=== PATIENT | male | born 1965 | race Hispanic/Latino ===

== ENCOUNTER 2018-03-05 10:32 | Inpatient (IN) | payer BC ==
--- NOTE | 2018-03-05 10:51 | ED PDOC ---
Arrival/HPI - General Chief Complaint: Chest Pain Time Seen by Provider: 03/05/18 10:43 Historian: Patient - History of Present Illness Narrative History of Present Illness (Text): 03/05/18 10:50 52 year old male with past medical history of a cardiac stent placement (11 years ago) presents to the emergency department complaining of centralized chest pressure for the past week, which developed into left-sided chest pain radiating to his left arm 1.5 hours prior to arrival. Patient informs feeling a "clammy" sensation but denies any other medical complaints. Patient states symptoms lasted for 5 minutes and states he is currently asymptomatic. Patient denies any fevers, chills, headache, dizziness, shortness of breath, dyspnea on exertion, cough, abdominal pain, nausea, vomiting, diarrhea, back pain, neck pain, or any other complaints. PMD: None Rejogger: Dr. Wyman 6 baby aspirins taken prior to arrival. Time/Duration: Other (1.5 hours prior to arrival) Symptom Onset: Gradual Symptom Course: Unchanged Activities at Onset: Light Context: Home Past Medical History - Provider Review Nursing Documentation Reviewed: Yes - Infectious Disease Hx of Infectious Diseases: None - Cardiac Hx SD: Yes Other/Comment: cardiac stent - Pulmonary Hx Respiratory Disorders: No - Neurological Hx Neurological Disorder: No - HEENT Hx HEENT Disorder: No - Renal Hx Renal Disorder: No - Endocrine/Metabolic Hx Endocrine Disorders: No - Hematological/Oncological Hx Blood Disorders: No - Integumentary Hx Dermatological Disorder: No - Psychiatric Hx Substance Use: No - Anesthesia Hx Anesthesia: No Family/Social History - Physician Review Nursing Documentation Reviewed: Yes Family/Social History: No Known Family HX Smoking Status: Current Some Days Smoker Hx Alcohol Use: No Hx Substance Use: No Allergies/Home Meds Allergies/Adverse Reactions: Allergies No Known Allergies Allergy (Verified 05/20/12 12:57) Review of Systems - Physician Review All systems were reviewed & negative as marked: Yes - Review of Systems Respiratory: absent: SOB Cardiovascular: Chest Pain (left sided with radiation to left arm) Gastrointestinal: absent: Diarrhea, Nausea, Vomiting Physical Exam - Physical Exam Narrative Physical Exam (Text): 03/05/18 10:58 Constitutional: No acute distress. Head: Normocephalic. Atraumatic. Eyes: PERRL. ENT: Moist mucous membranes. Neck: Supple. Cardiovascular: Regular rate. Chest: No tenderness. Respiratory: Clear to auscultation bilaterally. GI: Soft. Nontender. Nondistended. Back: No CVA tenderness. Musculoskeletal: No tenderness or swelling of extremities. Skin: No rash. Neurologic: Alert, no focal deficit. Vital Signs Reviewed: Yes Vital Signs Temp Pulse Resp BP Pulse Ox 03/05/18 10:32 98.3 F 81 18 117/71 98 Temperature: Afebrile Blood Pressure: Normal Pulse: Regular Respiratory Rate: Normal Appearance: Positive for: Well-Appearing, Non-Toxic, Comfortable Pain Distress: None Mental Status: Positive for: Alert and Oriented X 3 Medical Decision Making ED Course and Treatment: 03/05/18 10:59 Impression: 52 year old presents to the emergency department complaining of transient episode of chest pain radiating to left arm 1.5 hours prior to arrival. Plan: -- Labs -- EKG -- Chest X-ray -- Reassess and disposition Prior Visits: Notes and results from previous visits were reviewed. Progress Notes: EKG: Ordered, reviewed, and independently interpreted the EKG. Rate : 82 bpm Rhythm : NSR Interpretation : No ST-segment elevations or depressions, T-wave inversions V1- V6, 1AVL 03/05/18 12:34 Chest x-ray, reviewed by radiologist, shows: IMPRESSION: No active pulmonary disease. 4 mm nodular density in the right upper lobe is nonspecific and could represent an end on vessel or parenchymal nodule. Dedicated CT scan of the thorax without intravenous contrast on a nonemergent basis is recommended for further evaluation. Troponin positive. Patient states he saw Dr. Mcintosh in office years ago. Dr. Mcintosh accepts patient to his service. Dr. Wyman will take patient to tailings dam laborer now. - RAD Interpretation Corn Detasseler Machine Operator: Radiologist - EKG Interpretation Interpreted by ED Physician: Yes Type: 12 lead EKG - Scribe Statement The provider has reviewed the documentation as recorded by the Scribe Jeaneth brown with Christal All medical record entries made by the Scribe were at my direction and personally dictated by me. I have reviewed the chart and agree that the record accurately reflects my personal performance of the history, physical exam, medical decision making, and the department course for this patient. I have also personally directed, reviewed, and agree with the discharge instructions and disposition. Disposition/Present on Arrival - Present on Arrival Any Indicators Present on Arrival: No History of DVT/PE: No History of Uncontrolled Diabetes: No Urinary Catheter: No History of Decub. Ulcer: No History Surgical Site Infection Following: None - Disposition Have Diagnosis and Disposition been Completed?: Yes Diagnosis: NSTEMI (non-ST elevated myocardial infarction) Disposition: HOSPITALIZED Disposition Time: 13:00 Patient Plan: Admission, Telemetry Patient Problems: Current Active Problems Problem Status Onset NSTEMI (non-ST elevated myocardial infarction) Acute Condition: GUARDED Forms: [facility] (Nepali)
[2018-03-05 11:24] LABS: BASO # 0.02 K/mm3 (0.0-2.0); BASO % 0.3 % (0.0-3.0); EOS # 0.2 (0.0-0.7); GRAN # 5.18 (1.4-6.5); GRAN % 68.6 % (50.0-68.0); HEMOGLOBIN 12.6 g/dL (14.0-18.0); LYMPH # 1.9 (1.2-3.4); LYMPH % 24.9 % (22.0-35.0); MEAN CELL VOLUME 88.2 fl (80.0-105.0); MEAN CORPUSCULAR HEMOGLOBIN 29.2 pg (25.0-35.0); MEAN CORPUSCULAR HGB CONC 33.1 g/dl (31.0-37.0); MEAN PLATELET VOLUME 9.3 fl (7.0-11.0); MONO # 0.3 (0.1-0.6); MONO % 4.2 % (1.0-6.0); RBC 4.32 10^6/uL (3.5-6.1); RED CELL DISTRIBUTION WIDTH 13.6 % (11.5-14.5); WHITE BLOOD COUNT 7.6 10^3/uL (4.5-11.0)
[2018-03-05 11:31] LABS: ALB/GLOB RATIO 1.3 (1.1-1.8); ALBUMIN 4.1 g/dL (3.0-4.8); ALT/SGPT 29 U/L (7-56); AST/SGOT 22 U/L (17-59); BLOOD UREA NITROGEN 17 mg/dL (7-21); CALCIUM 8.8 mg/dL (8.4-10.5); GFR NON-AFRICAN AMERICAN > 60
--- NOTE | 2018-03-05 12:31 | RAD ---
Date of service: 03/05/2018 HISTORY: Chest pain COMPARISON: No prior. FINDINGS: LUNGS: The lungs are well inflated and clear. There is subsegmental atelectasis in the right lower lobe. There is a 4 mm nodular density in the right upper lobe. PLEURA: No pleural effusions or pneumothorax. CARDIOVASCULAR: The heart is normal in size. No aortic atherosclerotic calcification present. OSSEOUS STRUCTURES: Within normal limits for the patient's age. VISUALIZED UPPER ABDOMEN: Normal. OTHER FINDINGS: None. IMPRESSION: No active pulmonary disease. 4 mm nodular density in the right upper lobe is nonspecific and could represent an end on vessel or parenchymal nodule. Dedicated CT scan of the thorax without intravenous contrast on a nonemergent basis is recommended for further evaluation.
[2018-03-05 12:32] LABS: TROPONIN I 0.15 ng/mL
[2018-03-05] MEDS ORDERED: Potassium Chloride 20 mEq ER Tab PO STA (13:35)
[2018-03-05] MEDS ORDERED: Aspirin 325 mg EC Tablets PO STA (13:35)
[2018-03-05] MEDS ORDERED: Lidocaine 2% Inj (20ml) ONE (13:59)
[2018-03-05] MEDS ORDERED: Phenylephrine 10 mg/ml Inj ONE (14:00)
[2018-03-05] MEDS ORDERED: Iodixanol 320 MG/ML 200 ML BOTTLE IV ONE (14:00)
[2018-03-05] MEDS ORDERED: Iodixanol 320 MG/ML 100 ML BOTTLE IV ONE (14:00)
[2018-03-05] MEDS ORDERED: Iohexol 350mgl/ml 50 ML ONE (14:00)
[2018-03-05] MEDS ORDERED: Nitroglycerin 50mg in D5W 50 MG/250 ML BOTTLE IV ONE (14:01)
[2018-03-05] MEDS ORDERED: Verapamil 2 ML ONE (14:01)
[2018-03-05 14:03] LABS: INR 1.05; PARTIAL THROMBOPLASTIN TIME 30.1 Seconds (25.1-36.5); PROTHROMBIN TIME 12.1 SECONDS (9.4-12.5)
[2018-03-05] MEDS ORDERED: Midazolam 2 MG/2 ML VIAL ONE (14:56)
--- NOTE | 2018-03-05 15:00 | CON ---
DATE: 03/05/2018 SEX OF THE PATIENT: Male. AGE OF THE PATIENT: 52. TYPE OF DICTATION: Consult. REASON FOR CONSULTATION AND FOLLOWUP: Acute coronary artery disease, unstable angina, chest pain. BRIEF CLINICAL HISTORY: This 52-year-old active tobacco abuse male with past medical history significant for coronary artery disease status post DC 11 years ago, status post PTCA 11 years ago at [facility], who came in with complain of chest pain for 24 hours duration. Yesterday, patient with central retrosternal chest pain that got better so the patient did not pay attention. This morning, again the patient has a chest pain heavy, sitting something on the chest. He came to the emergency room. He denies any further episode of the chest pain. Admitting EKG showed normal sinus, symmetrical T inversion in lead V2 to V6 and one in AVL as well. Denies any chest pain now. PAST MEDICAL HISTORY: Significant for coronary artery disease, status post DC and PTCA 11 years ago at [facility]. CURRENT MEDICATIONS: None. FAMILY HISTORY: Significant for coronary artery disease. SOCIAL HISTORY: He smokes half a pack a day, before used to more but cut down. History of alcohol abuse cut down. ALLERGIES: NO KNOWN DRUG ALLERGIES. REVIEW OF SYSTEMS: As per HPI. PHYSICAL EXAMINATION VITAL SIGNS: Height of the patient 5 feet 9 inches, weight of patient 190 pounds, body mass index 28.1 kg/m2. Temperature afebrile, heart rate 81, blood pressure 120/75. HEENT: PERRLA intact. NECK: Supple. No carotid bruit or thyromegaly. CHEST: Clear to auscultation. HEART: S1. S2 regular. ABDOMEN: Soft. EXTREMITIES: No clubbing. No cyanosis. LABORATORY DATA: WBC 7.6, hemoglobin 12.6, hematocrit 38.1, platelet count 241. Chemistry shows sodium 141, potassium 3.7, chloride 108, carbon-dioxide 26, anion gap 11, creatinine 1.0, troponin 0.17. EKG shows normal sinus, rate of 82, symmetrical T wave inversion V2 to V6. IMPRESSION: Acute coronary artery disease, unstable angina, possible non-ST segment myocardial infarction. Given the risk factor multiple history of coronary artery status post percutaneous transluminal coronary angioplasty 11 years ago, noncompliance with the medication, admitted with unstable angina, symmetrical T wave inversion. RECOMMENDATIONS: Load with aspirin, Plavix and consider early catheterization. Risks, benefits, and alternatives discussed with the patient, the patient agreed to proceed for cardiac catheterization further recommendation after cardiac catheter, we will follow with you. Thank you Dr. Mcintosh for providing us the opportunity in taking care of the patient, Shawn Simms, we will follow with you. Ben Wyman MD MTDD
[2018-03-05] MEDS ORDERED: Eptifibatide 20 mg/10mL Inj IVP ONE (15:15)
[2018-03-05] MEDS ORDERED: Sodium Chloride 0.9% 1,000 ML IV SCH (16:00)
--- NOTE | 2018-03-05 16:48 | CARD ---
APPROVED REPORT Date of service: 03/05/2018 Procedure(s) performed: Left Heart Catheterization PTCA with Stenting of Proximal LAD with JAM HISTORY The patient is a 52 year-old male with a history of : previous ND (> 7 days), previous diagnostic cath, tobacco history() : The patient is a current smoker , previous PCI (The PCI date was 03/03/2007), Non compliant with meds, admitted with ACS/ NSTEMI. INDICATION The indication(s) include : unstable angina , non-STEMI . CASE TECHNIQUE The patient was brought urgently to the Cardiac Catheterization Laboratory in a fasting state and was prepped and draped in a sterile manner. The left wrist was infiltrated with 2% Lidocaine subcutaneous anesthesia. A 6FR GLIDESHEATH ACCESS KIT sheath was inserted into the left radial artery without difficulty. Coronary angiography was performed using coronary diagnostic catheters. The left coronary system was accessed and visualized with a Diagnostic ,5F JL 4 CATH DXT 100 CM catheter. The right coronary system was accessed and visualized with a Diagnostic ,5F JR 4 CATH DXT 100 CM catheter. The left ventricle was accessed and visualized with a 5F PIGTAIL 145 CATH DXT 110 CM catheter. Left ventricular/Aortic Valve gradient assessed on pullback. Left ventriculogram was performed in JAY projection. Closure device was deployed with a Fr TR Band (Regular) without any complications. The patient tolerated the procedure well and there were no complications associated with the procedure. Vessel Analysis The patient's coronary anatomy is right dominant. The left main coronary artery is a medium size vessel with diffuse calcification noted throughout this vessel and without significant stenosis. The left main bifurcates to the left anterior descending and circumflex. The left anterior descending artery is a medium size vessel with diffuse calcification noted throughout this vessel and with significant stenosis. Stent Noted In Proximal LAD, But stenosis is Proximal to stent involving proxinal end of stent. There is a 95% stenosis in the proximal segment. Proximal to previously placed stent The first diagonal branch is a small size vessel with diffuse calcification noted throughout this vessel and without significant stenosis. The second diagonal branch is a small size vessel with diffuse calcification noted throughout this vessel and without significant stenosis. The circumflex artery is a medium size vessel with diffuse calcification noted throughout this vessel and without significant stenosis. There is a 40-50% stenosis in the mid segment. The first obtuse marginal branch is a medium size vessel with diffuse calcification noted throughout this vessel and without significant stenosis. There is a 40-50% stenosis in the proximal segment. The second obtuse marginal branch is a medium size vessel with diffuse calcification noted throughout this vessel and without significant stenosis. The third obtuse marginal branch is a small size vessel with diffuse calcification noted throughout this vessel and without significant stenosis. The right coronary artery is a medium size vessel with diffuse calcification noted throughout this vessel and without significant stenosis. There is a 40-50% stenosis in the mid and Distalsegment. multiple sausagge shape stenoses The right posterior descending artery is a medium size vessel with diffuse calcification noted throughout this vessel and without significant stenosis. The right posterolateral branch is a medium size vessel with diffuse calcification noted throughout this vessel and without significant stenosis. Left Ventricle The left ventricle is Normal in size with Normal contractility. There was no cardiomyopathy. The left ventricular ejection fraction is estimated to be 55%. The left ventricular end diastolic pressure is 15-16 mmHg. There was no gradient across the aortic valve upon pullback. Possibly 1-2 + MR,( Hand injection). PCI Technique Lesion Anticoagulation was achieved with Heparin and integrellin Bolluses only. Percutaneous coronary intervention was performed on the proximal left anterior descending artery segment. The lesion stenosis prior to intervention was 95% with LISA 2 flow. A 6 Fr XB 3.0 Guide Catheter was used to engage the ostium. A Luge 182 Interventional Guidewire was used to cross the lesion. BALLOON DILATION A Balloon catheter 2.5 x 12 mm Trek RX was inserted and inflated up to 10.00atm for 14seconds. STENT DEPLOYMENT A drug-eluting stent STENT RESOLUTE TOÑITO 3.0 X 15 was inserted and inflated up to 14.00atm for 30seconds. Final angiography reveals 0 % stenosis with LISA 3 flow. Conclusion Critical one Vessel disease ,Proximal LAD 95% stenosis. Moderate RCA and cx diz. Preserved LV FX, EF-55%, EDP-15-16 mmof hg. Successful PTCA with JAM of Proximal LAD Recommendations Daily ASA with Plavix for at least one year Aggressive Medical TherapyCardiac Risk Reduction Program Add statin, CIARAN, and coreg. Emphasis on compliance of meds. F/u Echo to asssess MR and Lv Fx, F/u CT Scan chest for pulmonary Nodule mentioned on CxR. CC; Dr. Chasity Mcintosh DO.
--- NOTE | 2018-03-05 17:25 | CARD ---
APPROVED REPORT Date of service: 03/05/2018 EKG Measurement Heart [id number] <Conclusion> Normal sinus rhythm Possible Inferior infarct, age undetermined SymmetricalT wave inversion,, consider anterolateral ischemia Abnormal ECG
--- NOTE | 2018-03-05 18:59 | HP ---
DATE OF EXAM: 03/05/2018 HISTORY OF PRESENT ILLNESS: I was called to see Shawn in the hospital. He is a 52-year-old white man, I have not seen in a long time who presents with a centralized chest pressure for the past week and development of left-sided chest pain to the left arm for about 1.5 hours before he got to the hospital, also clammy, he felt he was having a heart attack, and he is little bit short of breath. His doctor is Dr. Wyman, his auxiliary equipment operator. PAST MEDICAL HISTORY: CAD with stent placement 11 years ago. I have not seen him in many, many years in the office. FAMILY HISTORY: Unknown family history. SOCIAL HISTORY: Still smokes cigarettes. No alcohol. No drugs. ALLERGIES: NO KNOWN DRUG ALLERGIES. REVIEW OF SYSTEMS: No acute vision or hearing changes. No sore throat. There is chest pain left-sided radiating to the left arm. Little shortness of breath, but he is talking too much. No nausea, vomiting, constipation, or diarrhea. No headache. Not anxious. PHYSICAL EXAMINATION: VITAL SIGNS: He has 98.3 temperature, 81 pulse, 18 respiratory rate, 117/71 blood pressure, and 98% O2 sat on room air. GENERAL: He is in mild distress. HEENT: His head is atraumatic and normocephalic. His extraocular muscles are intact. Pupils are equal and react to light and accommodation. Throat is moist. NECK: Supple. HEART: Regular rate. LUNGS: Decreased breath sounds. Poor inspiration, but clear to auscultation bilaterally. No wheezes, rhonchi or rales. ABDOMEN: Soft and nontender. Positive bowel sounds. No guarding. No rebound. No CVA tenderness. EXTREMITIES: Have no edema bilaterally. No apparent rash ulcers. NEUROLOGIC: He is alert and oriented x3. Little anxious. LABORATORY DATA: He had a chest x-ray, which showed a 4-mm nodule density in the right upper lobe. Please get a CAT scan, we ordered CAT scan for tomorrow morning and EKG that showed possible ST-segment elevations or depressions T-waves anteriorly. He had multiple tests done. He has 141 sodium, potassium 3.7, BUN 70, creatinine 1, GFR greater than 60, sugar is 116, calcium 8.8, total bili is 0.5, AST is 22, ALT is 29, alk phos 61, and total creatinine kinase is 97. Troponin I is elevated 0.15. Total protein 7.2, albumin is 4.1, and globulin is 3.2. INR is 1.05. White count 7.6, hemoglobin 12.6, hematocrit 30.1, and platelets are 241. ASSESSMENT AND PLAN: He is currently on Altace, Coreg, Lipitor, and IV fluids. He is status post cardiac catheterization with Dr. Wyman with stent placement. He is here for an acute myocardial infarction, coronary artery disease with stent placement. He will have a CAT scan of the chest tomorrow lung, echocardiogram, and blood test. Hopefully, he will do well. He is more comfortable now after the stent placement. Hasmukh Mcintosh DO MTDVal
[2018-03-05 19:02] VITALS: BMI 28.0
[2018-03-05] MEDS ORDERED: Influenza Vaccine 60 mcg/0.5 mL SYR (4YR UP) IM ONE (19:02)
[2018-03-05] MEDS ORDERED: Pneumococcal 23-Valent Vaccine IM ONE (19:02)
[2018-03-05 20:17] LABS: BASO # 0.02 K/mm3 (0.0-2.0); BASO % 0.3 % (0.0-3.0); EOS # 0.3 (0.0-0.7); EOS % 4.2 % (1.5-5.0); GRAN # 2.79 (1.4-6.5); GRAN % 44.9 % (50.0-68.0); HEMOGLOBIN 12.1 g/dL (14.0-18.0); LYMPH # 2.8 (1.2-3.4); LYMPH % 45.1 % (22.0-35.0); MEAN CELL VOLUME 88.5 fl (80.0-105.0); MEAN CORPUSCULAR HEMOGLOBIN 29.1 pg (25.0-35.0); MEAN CORPUSCULAR HGB CONC 32.9 g/dl (31.0-37.0); MEAN PLATELET VOLUME 9.5 fl (7.0-11.0); MONO # 0.3 (0.1-0.6); MONO % 5.5 % (1.0-6.0); RBC 4.16 10^6/uL (3.5-6.1); RED CELL DISTRIBUTION WIDTH 13.7 % (11.5-14.5); WHITE BLOOD COUNT 6.2 10^3/uL (4.5-11.0)
[2018-03-05 20:20] LABS: BLOOD UREA NITROGEN 16 mg/dL (7-21); CALCIUM 8.7 mg/dL (8.4-10.5); GFR NON-AFRICAN AMERICAN > 60
[2018-03-05] MEDS ORDERED: Bacitracin 500 Units/gm Oint Foilpak UD ONE (20:46)
[2018-03-05 22:33] VITALS: RESP 20
[2018-03-06 05:57] VITALS: TEMP 98.7; O2SAT 97
[2018-03-06 07:32] LABS: BASO # 0.02 K/mm3 (0.0-2.0); BASO % 0.3 % (0.0-3.0); EOS # 0.3 (0.0-0.7); EOS % 3.9 % (1.5-5.0); GRAN # 4.29 (1.4-6.5); GRAN % 62.4 % (50.0-68.0); HEMOGLOBIN 13.9 g/dL (14.0-18.0); LYMPH % 28.6 % (22.0-35.0); MEAN CELL VOLUME 89.7 fl (80.0-105.0); MEAN CORPUSCULAR HEMOGLOBIN 29.1 pg (25.0-35.0); MEAN CORPUSCULAR HGB CONC 32.5 g/dl (31.0-37.0); MEAN PLATELET VOLUME 9.5 fl (7.0-11.0); MONO # 0.3 (0.1-0.6); MONO % 4.8 % (1.0-6.0); RBC 4.77 10^6/uL (3.5-6.1); RED CELL DISTRIBUTION WIDTH 13.7 % (11.5-14.5); WHITE BLOOD COUNT 6.9 10^3/uL (4.5-11.0)
[2018-03-06 07:41] LABS: ALB/GLOB RATIO 1.2 (1.1-1.8); ALBUMIN 4.3 g/dL (3.0-4.8); ALT/SGPT 32 U/L (7-56); AST/SGOT 26 U/L (17-59); BLOOD UREA NITROGEN 13 mg/dL (7-21); CALCIUM 9.2 mg/dL (8.4-10.5); GFR NON-AFRICAN AMERICAN > 60; HDL CHOLESTEROL 30 mg/dL (29-60)
[2018-03-06 07:52] LABS: LDL CHOLESTEROL 87 mg/dL (0-129)
--- NOTE | 2018-03-06 08:05 | CP.PCM.PN ---
Subjective - Date & Time of Evaluation Date of Evaluation: 03/06/18 Time of Evaluation: 06:45 - Subjective Subjective: Awake, alert, oriented, denies chest pain Reason for consultation and follow up:Cardiac evaluation of chest pain, unstable angina, acute coronary syndrome Seen and examined by me and Dr. Wyman Objective - Vital Signs/Intake and Output Vital Signs (last 24 hours): Temp Pulse Resp BP Pulse Ox 98.7 F 65 20 112/77 97 03/06/18 05:55 03/06/18 05:55 03/06/18 05:55 03/06/18 05:55 03/06/18 05:55 Intake and Output: 03/06/18 03/06/18 06:59 18:59 Intake Total 2360 Output Total 5 Balance 2355 - Medications Medications: Current Medications Atorvastatin Calcium (Lipitor) 80 mg PO DIN [facility] Last Admin: 03/05/18 17:57 Dose: 80 mg Carvedilol (Coreg) 3.125 mg PO BID [facility] Last Admin: 03/05/18 17:57 Dose: 3.125 mg Ramipril (Altace) 1.25 mg PO DAILY [facility] - Labs Labs: 03/06/18 07:00 03/06/18 07:00 PT 12.1 SECONDS (9.4-12.5) 03/05/18 11:06 INR 1.05 03/05/18 11:06 APTT 30.1 Seconds (25.1-36.5) 03/05/18 11:06 - Constitutional Appears: Non-toxic, No Acute Distress - Head Exam Head Exam: NORMAL INSPECTION, NORMOCEPHALIC - Eye Exam Eye Exam: Normal appearance Pupil Exam: NORMAL ACCOMODATION - ENT Exam ENT Exam: Mucous Membranes Moist, Normal Exam - Neck Exam Neck Exam: Full ROM, Normal Inspection - Respiratory Exam Respiratory Exam: Decreased Breath Sounds, Clear to Ausculation Bilateral, NORMAL BREATHING PATTERN - Cardiovascular Exam Cardiovascular Exam: REGULAR RHYTHM, +S1, +S2 Additional comments: Telemetry NSR 70's - GI/Abdominal Exam GI & Abdominal Exam: Soft, Normal Bowel Sounds - Extremities Exam Extremities Exam: Full ROM, Normal Capillary Refill Additional comments: left radial cath site no bleeding, no hematoma, positive pulses - Neurological Exam Neurological Exam: Alert, Awake, Oriented x3 - Psychiatric Exam Psychiatric exam: Normal Affect, Normal Mood - Skin Skin Exam: Dry, Normal Color, Warm Assessment and Plan - Assessment and Plan (Free Text) Assessment: A 52 year old male who came in to the ER due to complaining of centralized chest pressure for the past week, which developed into left-sided chest pain radiating to his left arm 1.5 hours prior to arrival. History of coronary artery disease, post LA and post PTCA 11 years ago ( 2007) at [facility] [place]. Current smoker. Had cardiac catheterization yesterday and showed LAD 95%, moderate disease of RCA and CX. PTCA with JAM of proximal LAD successfully done. LVEF 55%. Stable, denies chest pain now. For CT of chest, to evaluate nodule seen on Chest X ray. For Echo to evaluate LV function. On plavix and Aspirin. Plan: Stable, denies chest pain now, feels better Post PTCA with JAM of proximal LAD done yesterday On Plavix and Aspirin for at least a year Smoking cessation Nicoderm patch On Lipitor 80 mg daily, Coreg 3.125 mg BID,Altace 1.25 mg daily, Continue current treatment Continue current medications For CT of chest, to evaluate nodule seen on Chest X ray. For Echo to evaluate LV function. Discontinue telemetry May discharge today after CT and Echo. Will follow up Plan and treatment discussed with Dr. Wyman
--- NOTE | 2018-03-06 08:13 | CPOSTOP ---
DATE: 03/05/2018 SEX OF THE PATIENT: Male. AGE OF THE PATIENT: 52. TYPE OF DICTATION: Cardiovascular post-procedure note. DICTATION PHYSICIAN: Ben Wyman MD FIRER DIESEL LOCOMOTIVE: Mary Sharif, accelerator technician. TYPE OF ANESTHESIA: Moderate conscious sedation, total 2 mg of Versed and 100 of fentanyl given periodically. Started 1 mg of Versed and 50 of fentanyl. PRE-PROCEDURE DIAGNOSES: Unstable angina, acute coronary syndrome, non-ST segment myocardial infarction. PROCEDURES PERFORMED: 1. Left heart catheterization. 2. Stenting of proximal left anterior descending with a drug-eluting stent. FINDINGS: Proximal LAD 95% stenosis. FINAL DIAGNOSIS: Single vessel critical disease. POST PROCEDURE PATIENT CONDITION: Stable. VASCULAR ACCESS SITE: Left radial. CLOSURE DEVICE: TR band. TOTAL RADIATION DOSE: 9553.3 milligray unit. TOTAL FLUORO TIME: 8.9 minutes. Ben Wyman MD
[2018-03-06 09:37] VITALS: BP 129/77
--- NOTE | 2018-03-06 09:54 | CARD ---
APPROVED REPORT Date of service: 03/05/2018 EKG Measurement Heart [id number] <Conclusion> Normal sinus rhythm Possible Inferior infarct, age undetermined T wave abnormality, consider anterolateral ischemia Abnormal ECG
[2018-03-06 10:08] VITALS: PULSE 65
--- NOTE | 2018-03-06 12:00 | DS ---
HISTORY OF PRESENT ILLNESS: He came in with LA, left arm pain. He was straight to cardiac cath and he had a stent placed. MEDICATIONS: He is currently on Altace, aspirin, Coreg, Lipitor, Nicoderm, and Plavix. He was told smoke anymore. He is going to come into my office next week, over this with him. He is feeling better now. He is walking around the room well and wants to leave. PHYSICAL EXAMINATION: VITAL SIGNS: He has 98.7 temperature, 65 pulse, 129/77 blood pressure 20, respiratory rate, 97% O2 sat on room air. HEENT: Head is atraumatic, normocephalic. HEART: Regular rate with decreased breath sounds, but clear. ABDOMEN: Soft. EXTREMITIES: No edema. LABORATORY DATA: He has a 6.9 white count, 13.9 hemoglobin, 42.8 hematocrit with a 259 platelets. Sodium 139, potassium 4.9, BUN is 30, creatinine 0.9, GFR is greater than 60, sugar is 100, calcium is 9.2, phosphorous 3.8, magnesium 2.3, total bili is 0.8. AST is 26, ALT is 32, alk phos 66, troponin was very high at 0.15 when he came in. Total protein 7.9, albumin is 4.3, globulin 3.6. TSH is 2.17. He had a CAT scan of the chest which is pending and echocardiogram which is pending. IMPRESSION and PLAN: He will see me next week and we have to follow up on the echo and CT scan of chest. He will be seeing Dr. Wyman in a week. The patient has chest pain, LA, CAD, stent placement. Hasmukh Mcintosh DO MTDVal
--- NOTE | 2018-03-06 12:40 | CT ---
Date of service: 03/06/2018 CT chest without IV contrast Indication: Pulmonary nodule on CxR Technique: Contiguous axial images were obtained through the chest without intravenous contrast enhancement. Sagittal and coronal reconstructions were generated and reviewed. This CT exam was performed using 1 or more of the following dose reduction techniques: Automated exposure control, adjustment of the MAA and/or kV according to patient size, and/or use of iterative reconstruction technique. Radiation dose (DLP): 545.3 MGy-cm. Comparison: Chest x-ray performed 03/05/18 Findings: Visualized portions of the inferior thyroid gland appear unremarkable. The mediastinal and hilar vascular structures appear within normal limits. The heart appears within normal limits of size. No focal consolidation. No pleural effusion. No pneumothorax. No suspicious pulmonary nodules measuring greater than 5 mm. Limited visualization of the noncontrast upper abdomen: Evidence of vicarious excretion of contrast into the gallbladder. Mild degenerative changes of the spine. Impression: No acute findings identified.
--- NOTE | 2018-03-06 13:44 | PN ---
DATE: 03/06/2018 REASON FOR CONSULTATION: Followup, acute coronary syndrome, unstable angina, status post PTCA of proximal LAD 95% stenosis. This note is in addition to dictated by the nurse practitioner. The patient seen, waiting go for a CAT scan because chest x-ray revealed on admission a 4-mm nodule density in the right upper lobe on the vessels, suggested dedicated CAT scan because the patient has extensive history of smoking. Today, the patient is much comfortable. Denied any chest pain, shortness of breath, or any palpitation. LABORATORY DATA: Hemoglobin 13.9, hematocrit 42.8 and the platelet count 259. Chemistry also within the normal limits. TSH 2.17, triglyceride 247, cholesterol 150, LDL 87, HDL 30. IMPRESSION AND PLAN: The patient is a 52-year-old male with past medical history significant for coronary artery disease, status post myocardial infarction, anterior wall; status percutaneous transluminal coronary angioplasty of left anterior descending admitted to the [facility], admitted with unstable angina, underwent emergent cardiac catheterization with stenting of the proximal left anterior descending, noncompliant. Emphasis was made on complete cessation of smoking, going for dedicated CAT scan for assess pulmonary nodules on chest x-ray. We will get echo. If remained stable, possible discharge home today. On baby aspirin 81 mg daily; ramipril 1.25 mg daily; Plavix 75 mg daily; Coreg 3.125 mg daily; atorvastatin 80 mg daily, since the patient's LDL is 87, we changed to 40 mg daily from today. We will follow with you. Thank you Dr. Mcintosh for providing this opportunity in taking care of the patient. We will follow possibly discharge home today. We will review echo and CAT scan when it is done. This note is in addition to dictated by the nurse practitioner, Ruby Garcia. Ben Wyman MD
--- NOTE | 2018-03-06 16:15 | CARD ---
APPROVED REPORT Date of service: 03/06/2018 EXAM: Two-dimensional and M-mode echocardiogram with Doppler and color Doppler. INDICATION Chest Pain 2D DIMENSIONS Left Atrium (2D)3.2 (1.6-4.0cm)IVSd1.1 (0.7-1.1cm) LVDd5.3 (3.9-5.9cm)PWd1.0 (0.7-1.1cm) LVDs3.4 (2.5-4.0cm)FS (%) 35.2 % LVEF (%)64.1 (>50%) M-Mode DIMENSIONS Aortic Root3.30 (2.2-3.7cm)Aortic Cusp Exc.2.30 (1.5-2.0cm) Aortic Valve AoV Peak Mpeynehy132.0cm/Arturo Peak GR.5mmHg Mitral Valve MV E Yllsqepw71.2cm/sMV A Apukdzzo54.3cm/sE/A ratio0.8 TDI E/Lateral E'0.0E/Medial E'0.0 Tricuspid Valve TR Peak Qomqdfsk87ge/sRAP [id number] Peak Gr.4mmHg [id number] LEFT VENTRICLE The left ventricle is normal size. LV Septumis Hypertrophied. The left ventricular function is normal. The left ventricular ejection fraction is within the normal range.Ej.Fr: 64%. RIGHT VENTRICLE The right ventricle is normal size. The right ventricular systolic function is normal. ATRIA The left atrium size is normal. The right atrium size is normal. AORTIC VALVE Aortic Valve Thickened. Opening Normal. MITRAL VALVE Mitral Valve Thickened. Valve Opening Normal. Mitral regurgitation is trace. TRICUSPID VALVE The tricuspid valve is normal in structure. There is trace tricuspid regurgitation. PERICARDIAL EFFUSION There is no pericardial effusion. <Conclusion> The left ventricle is normal size. LV Septumis Hypertrophied. The left ventricular function is normal. The left ventricular ejection fraction is within the normal range.Ej.Fr: 64%. LV Shows Very Mild Diastolic Dysfunction. The right ventricle is normal size. The right ventricular systolic function is normal. The left atrium size is normal. The right atrium size is normal. Aortic Valve Thickened. Opening Normal. Mitral Valve Thickened. Valve Opening Normal. Trace Mitral Regurge. The tricuspid valve is normal in structure. There is trace tricuspid regurgitation. There is no pericardial effusion.
== END 2018-03-06 11:33 | disposition home or self-care (01) | DRG 247 ==
LOC: ED 10:32 → ERH 13:41 → 2RSO 16:00
PROVIDERS: ADMIT Family Medicine; ATTEND Family Medicine
PROC: 027034Z Dilation of Coronary Artery, One Artery with Drug-eluting Intraluminal Device, Percutaneous Approach (ICD-10-PCS; principal; 2018-03-05)
PROC: 4A023N7 Measurement of Cardiac Sampling and Pressure, Left Heart, Percutaneous Approach (ICD-10-PCS; 2018-03-05)
PROC: B2151ZZ Fluoroscopy of Left Heart using Low Osmolar Contrast (ICD-10-PCS; 2018-03-05)
PROC: B2111ZZ Fluoroscopy of Multiple Coronary Arteries using Low Osmolar Contrast (ICD-10-PCS; 2018-03-05)
PROC: 3E033PZ Introduction of Platelet Inhibitor into Peripheral Vein, Percutaneous Approach (ICD-10-PCS; 2018-03-05)
DX: I21.4 Non-ST elevation (NSTEMI) myocardial infarction (principal); I25.110 Atherosclerotic heart disease of native coronary artery with unstable angina pectoris; F17.210 Nicotine dependence, cigarettes, uncomplicated; R91.1 Solitary pulmonary nodule; I25.2 Old myocardial infarction; Z79.02 Long term (current) use of antithrombotics/antiplatelets; Z79.82 Long term (current) use of aspirin; Z91.14 Patient's other noncompliance with medication regimen; Z91.19 Patient's noncompliance with other medical treatment and regimen; Z95.5 Presence of coronary angioplasty implant and graft